=== PATIENT | male | born 1985 | race Caucasian/White ===

== ENCOUNTER → 2016-04-15 | Day surgery (SDC) | payer BC ==
[~2016-04-15] VITALS: Ht 177.8 cm; Wt 60.2 kg
[~2016-04-15] MED LIST: ZANTAC (NON-FO150 MG PO; ZESTRIL2.5 MG PO
== END ==
LOC: GPOC 04-09 15:00 → GEND 07:41 → GPOC 08:00
PROC: 0DB68ZX Excision of Stomach, Via Natural or Artificial Opening Endoscopic, Diagnostic (ICD-10-PCS; principal; 2016-04-15)
PROC: 0DB48ZX Excision of Esophagogastric Junction, Via Natural or Artificial Opening Endoscopic, Diagnostic (ICD-10-PCS; 2016-04-15)
PROC: 0DJD8ZZ Inspection of Lower Intestinal Tract, Via Natural or Artificial Opening Endoscopic (ICD-10-PCS; 2016-04-15)
DX: K22.10 Ulcer of esophagus without bleeding (principal); F17.200 Nicotine dependence, unspecified, uncomplicated; Z79.899 Other long term (current) drug therapy
CPT/HCPCS: J2001; J7030